=== PATIENT | male | born 1945 | race Caucasian/White ===

== ENCOUNTER → 2017-06-23 | Outpatient (CLI) | payer MEDICARE, OTHER ==
[~2017-06-23] MED LIST: GABA600T2 PO; LISI-170 PO; METO25TA91 PO; OMEP-110 PO; OMNIPAQUE 350 MG/ML, 100ML BOTTLE ONE; OXYB5TAB7 PO; TRAM50TA2 PO
== END | disposition home or self-care (01) ==
LOC: CFH 14:48
PROVIDERS: ATTEND Thoracic Surgery (Cardiothoracic Vascular Surgery)
DX: Z01.810 Encounter for preprocedural cardiovascular examination (principal); I34.2 Nonrheumatic mitral (valve) stenosis; I71.9 Aortic aneurysm of unspecified site, without rupture; Z95.2 Presence of prosthetic heart valve
CPT/HCPCS: 71275; Q9967

== ENCOUNTER 2017-10-26 04:27 | Inpatient (IN) | payer OTHER ==
[2017-10-25 14:01] LABS: BASOPHILS # (AUTO) 0.06 x10^3/uL (0-0.1); BASOPHILS % (AUTO) 1 % (0-1); EOSINOPHILS # (AUTO) 0.31 x10^3/uL (0-0.4); EOSINOPHILS % (AUTO) 4 % (1-7); LYMPHOCYTES # (AUTO) 0.64 x10^3/uL (1-3.4); LYMPHOCYTES % (AUTO) 8 % (22-44); MD NO; MEAN CORPUSCULAR HGB CONC 32.5 g/dL (33.2-36.2); MEAN PLATELET VOLUME 10.6 fL (7.4-10.4); MONOCYTES # (AUTO) 0.72 x10^3/uL (0.2-0.8); MONOCYTES % (AUTO) 9 % (2-9); NEUTROPHILS # (AUTO) 6.05 x10^3/uL (1.8-6.8); NEUTROPHILS % (AUTO) 78 % (42-75); PLATELET COUNT 179 x10^3/uL (130-400); RED BLOOD COUNT 5.02 x10^6/uL (4.38-5.82); RED CELL DISTRIBUTION WIDTH 16.6 % (9.4-14.8)
[2017-10-25 14:09] LABS: INTERNATIONAL NORMALIZED RATIO 1.07 (0.93-1.1); PROTHROMBIN TIME 11.1 Seconds (9.6-11.5)
[2017-10-25 14:13] LABS: ALANINE AMINOTRANSFERASE 23 U/L (12-78); ALBUMIN 3.5 g/dL (3.4-5.0); ANION GAP 6 mmol/L (5-15); CALCIUM 8.1 mg/dL (8.5-10.1); CHLORIDE 106 mmol/L (98-107); CREATININE 0.99 mg/dL (0.7-1.3)
[2017-10-25 14:16] LABS: ALKALINE PHOSPHATASE 105 U/L (45-117); BILIRUBIN,TOTAL 0.6 mg/dL (0.2-1.0); TOTAL PROTEIN 7.6 g/dL (6.4-8.2)
[2017-10-25 14:17] LABS: HEMOGLOBIN A1C 6.6 % (4.2-6.3)
[~2017-10-26] VITALS: Ht 180.3 cm; Wt 138.9 kg
[~2017-10-26 04:27] MED LIST changes: -OMNIPAQUE 350 MG/ML, 100ML BOTTLE ONE
[2017-10-26 04:40] VITALS: BP_SYST 117; BP_SYST 125; BP_DIAS 74; BP_DIAS 79
[2017-10-26] MEDS ORDERED: CHLORHEXIDINE 15 ML BOTTLE MM SCH (05:30)
[2017-10-26] MEDS ORDERED: INSULIN ASPART 100 UNITS/ML, PEN SQ-INSULIN SCH (06:00)
[2017-10-26] MEDS ORDERED: VANCOMYCIN 2,100 MG in SODIUM CHLORIDE 0.9% 500 ML IV PRN (07:30)
[2017-10-26] MEDS ORDERED: EPINEPHRINE 2 MG in SODIUM CHLORIDE 0.9% 248 ML IV SCH (07:30)
[2017-10-26] MEDS ORDERED: MANNITOL PMX 20% 500 ML IVPB PRN (07:30)
[2017-10-26] MEDS ORDERED: PHENYLEPHRINE 10 MG in SODIUM CHLORIDE 0.9% 249 ML IV PRN ×2 (07:30→12:52)
[2017-10-26] MEDS ORDERED: DEXMEDETOMIDINE 200 MCG in SODIUM CHLORIDE 0.9% 48 ML IV SCH (07:30)
[2017-10-26] MEDS ORDERED: REGULAR INSULIN 62.5 UNITS in SODIUM CHLORIDE 0.9% 249.375 ML IV PRN (07:30)
[2017-10-26] MEDS ORDERED: CEFUROXIME 1.5 GM in SODIUM CHLORIDE 0.9% 50 ML IVPB PRN (07:30)
[2017-10-26] MEDS ORDERED: POTASSIUM CHLORIDE 80 MEQ, SODIUM BICARBONATE 8.4% 10 MEQ, MAGNESIUM SULFATE 0.5 GM, LI... IV PRN (07:30)
[2017-10-26] MEDS ORDERED: ALBUMIN HUMAN 5% 500 ML IV PRN (07:30)
[2017-10-26] MEDS ORDERED: FENTANYL PF 1000 MCG/20ML ONE (07:52)
[2017-10-26] MEDS ORDERED: MIDAZOLAM 10MG/2 ML ONE (07:53)
[2017-10-26] MEDS ORDERED: EPINEPHRINE 1 MG/ML, 1ML ONE (08:34)
[2017-10-26] MEDS ORDERED: KETAMINE 10 MG/ML, 20ML ONE (08:34)
[2017-10-26] MEDS ORDERED: VASOPRESSIN 20 UNIT/ML, 1ML ONE (08:34)
[2017-10-26] MEDS ORDERED: MUPIROCIN OINT 2%, 22GM TP SCH (09:00)
[2017-10-26] MEDS: DOCUSATE 100 MG CAPSULE PO SCH ×2 (09:00→20:01)
[2017-10-26] MEDS ORDERED: SODIUM CHLORIDE FLUSH 10ML SYR IVF SCH (09:00)
[2017-10-26] MEDS ORDERED: METHYLENE BLUE 10 MG/ML 10ML ONE (09:24)
[2017-10-26] MEDS ORDERED: ROCURONIUM 10 MG/ML,10ML ONE ×3 (10:19)
[2017-10-26] MEDS ORDERED: PROTAMINE SULFATE 10 MG/ML, 25ML ONE (10:21)
[2017-10-26] MEDS ORDERED: CALCIUM CHLORIDE 10%, 10ML SYR ONE (10:21)
[2017-10-26] MEDS ORDERED: PROPOFOL 10 MG/ML, 20ML ONE (10:21)
[2017-10-26] MEDS ORDERED: DEXMEDETOMIDINE 200 MCG in SODIUM CHLORIDE 0.9% 48 ML IV PRN (12:52)
[2017-10-26] MEDS ORDERED: DOBUTAMINE 250 MG in SODIUM CHLORIDE 0.9% 230 ML IV PRN (12:52)
[2017-10-26] MEDS ORDERED: NITROGLYCERIN/D5W PMX 240 ML IV PRN (12:52)
[2017-10-26] MEDS ORDERED: VASOPRESSIN 50 UNIT in SODIUM CHLORIDE 0.9% 250 ML IV PRN (12:52)
[2017-10-26] MEDS ORDERED: INSULIN REGULAR 100 UNITS/ML, 3ML VIAL IVPush PRN (13:00)
[2017-10-26] MEDS ORDERED: PROCHLORPERAZINE 5 MG/ML, 2ML IVPush PRN (13:00)
[2017-10-26] MEDS ORDERED: morphine SULFATE 10 MG/ML, 1ML IVPush PRN (13:00)
[2017-10-26] MEDS ORDERED: DEXTROSE 4 GM TAB.CHEW PO PRN (13:00)
[2017-10-26] MEDS ORDERED: BISACODYL 10 MG SUPP PR PRN (13:00)
[2017-10-26] MEDS ORDERED: LACTATED RINGERS 1,000 ML IV PRN (13:00)
[2017-10-26] MEDS ORDERED: ONDANSETRON 2MG/ML, 2ML IVPush PRN (13:00)
[2017-10-26] MEDS: CHLORHEXIDINE 15 ML BOTTLE MM SCH (13:00)
[2017-10-26] MEDS ORDERED: BISACODYL 5 MG EC TABLET PO PRN (13:00)
[2017-10-26] MEDS ORDERED: ACETAMINOPHEN 650 MG SUPP PR PRN (13:00)
[2017-10-26] MEDS ORDERED: DEXTROSE 50%, 50ML SYRINGE IVPush PRN (13:00)
[2017-10-26] MEDS ORDERED: GLUCAGON 1 MG IM PRN (13:00)
[2017-10-26] MEDS ORDERED: SODIUM BICARB 8.4%, 50ML SYRINGE ONE (13:13)
[2017-10-26] MEDS ORDERED: ALBUMIN HUMAN 25% 50 ML ONE (13:14)
[2017-10-26] MEDS ORDERED: HEPARIN 1,000 UNITS/ML, 30ML ONE (13:14)
[2017-10-26] MEDS ORDERED: LIDOCAINE 2% 100MG/5ML SYRINGE ONE (13:14)
[2017-10-26] MEDS ORDERED: methylPREDNISolone SOD SUCC 125 MG/2 ML ONE (13:14)
[2017-10-26 13:32] LABS: GLUCOSE BY BLOOD GAS ANALYZER 207 mg/dL (70-110); HEMOGLOBIN BY BLOOD GAS ANALYZ 9.8 g/dL (14.0-18.0); POTASSIUM BY BLOOD GAS ANALYZR 3.3 mmol/L (3.6-5.5)
[2017-10-26] MEDS ORDERED: FENTANYL PF 250 MCG/5ML ONE (13:32)
[2017-10-26 13:33] LABS: FIO2 80 %
[2017-10-26 13:43] LABS: INTERNATIONAL NORMALIZED RATIO 1.38 (0.93-1.1); PROTHROMBIN TIME 14.3 Seconds (9.6-11.5)
[2017-10-26] MEDS ORDERED: POTASSIUM CHLORIDE 30 MEQ in SODIUM CHLORIDE 0.9% 100 ML IV ONE (15:00)
[2017-10-26] MEDS ORDERED: DEXMEDETOMIDINE 1,000 MCG in SODIUM CHLORIDE 0.9% 240 ML IV PRN (15:00)
[2017-10-26] MEDS: KSCALE TO 4.5 IV SCH ×2 (15:13→19:00)
[2017-10-26] MEDS: SODIUM CHLORIDE 0.9% 1,000 ML IV SCH (15:15)
[2017-10-26] MEDS: EPINEPHRINE 2 MG in SODIUM CHLORIDE 0.9% 248 ML IV PRN ×2 (15:35→20:40)
[2017-10-26] MEDS: INSULIN ASPART 100 UNITS/ML, PEN SQ-INSULIN SCH ×2 (16:00→20:01)
[2017-10-26] MEDS: MAGNESIUM SULFATE 1 GM in SODIUM CHLORIDE 0.9% 50 ML IVPB SCH (16:12)
[2017-10-26] MEDS: SODIUM BICARB 8.4%, 50ML SYRINGE IV PRN ×2 (17:31→20:22)
[2017-10-26 18:57] LABS: CULTURE INDICATED? YES; MICROSCOPIC INDICATED
[2017-10-26] MEDS: REGULAR INSULIN 62.5 UNITS in SODIUM CHLORIDE 0.9% 249.375 ML IV PRN (19:56)
[2017-10-26] MEDS: CEFUROXIME 1.5 GM in SODIUM CHLORIDE 0.9% 50 ML IVPB SCH (19:59)
[2017-10-26] MEDS: VANCOMYCIN 2,100 MG in SODIUM CHLORIDE 0.9% 500 ML IVPB SCH (19:59)
[2017-10-26] MEDS: SODIUM CHLORIDE FLUSH 10ML SYR IVF SCH (19:59)
[2017-10-26] MEDS: MUPIROCIN OINT 2%, 22GM NAS SCH (20:00)
[2017-10-26] MEDS ORDERED: MIDAZOLAM 1 MG/ML, 2ML ONE (20:14)
[2017-10-26] MEDS ORDERED: SODIUM BICARBONATE 1 MEQ/ML, 50ML VIAL ONE (20:15)
[2017-10-26] MEDS: MIDAZOLAM 1 MG/ML, 5ML IVPush PRN ×2 (20:22→22:17)
[2017-10-26] MEDS ORDERED: SODIUM BICARB 8.4%, 50ML SYRINGE IV PRN (21:30)
[2017-10-26] MEDS ORDERED: POTASSIUM CHLORIDE 40 MEQ in SODIUM CHLORIDE 0.9% 100 ML IV ONE (22:00)
[2017-10-26] MEDS: OXYcodone IR 5MG TABLET PO PRN (22:17)
[2017-10-27] MEDS: CHLORHEXIDINE 15 ML BOTTLE MM SCH ×2 (00:41→13:00)
[2017-10-27] MEDS: KSCALE TO 4.5 IV SCH ×2 (03:00→08:37)
[2017-10-27] MEDS: REGULAR INSULIN 62.5 UNITS in SODIUM CHLORIDE 0.9% 249.375 ML IV PRN (03:19)
[2017-10-27] MEDS: EPINEPHRINE 2 MG in SODIUM CHLORIDE 0.9% 248 ML IV PRN (03:19)
[2017-10-27] MEDS ORDERED: ALBUTEROL/IPRATROPIUM 2.5MG/0.5MG, 3 ML NPPB PRN (04:00)
[2017-10-27 05:10] LABS: INTERNATIONAL NORMALIZED RATIO 1.15 (0.93-1.1); PROTHROMBIN TIME 11.9 Seconds (9.6-11.5)
[2017-10-27 05:12] LABS: MEAN CORPUSCULAR HEMOGLOBIN 26.3 pg (27.5-34.5); MEAN CORPUSCULAR HGB CONC 32.4 g/dL (33.2-36.2); MEAN CORPUSCULAR VOLUME 81.3 fL (81-97); MEAN PLATELET VOLUME 11.1 fL (7.4-10.4); PLATELET COUNT 124 x10^3/uL (130-400); RED BLOOD COUNT 4.17 x10^6/uL (4.38-5.82); RED CELL DISTRIBUTION WIDTH 16.5 % (9.4-14.8)
[2017-10-27 05:15] LABS: CHLORIDE 113 mmol/L (98-107)
[2017-10-27 05:21] LABS: ALBUMIN 2.7 g/dL (3.4-5.0); ANION GAP 8 mmol/L (5-15); CALCIUM 7.6 mg/dL (8.5-10.1); CREATININE 0.73 mg/dL (0.7-1.3)
[2017-10-27 05:30] LABS: MD YES
[2017-10-27] MEDS: INSULIN ASPART 100 UNITS/ML, PEN SQ-INSULIN SCH ×4 (05:31→19:54)
[2017-10-27 05:32] LABS: BANDS%(MANUAL) 12 % (0-7); MONOS#(MANUAL) 1.38 x10^3/uL (0.3-2.7); MONOS% (MANUAL) 5 % (2-9); SEG#(MANUAL) 22.83 x10^3/uL (1.8-6.8); SEGS% (MANUAL) 83 % (42-75)
[2017-10-27 05:34] LABS: <PLATELET ESTIMATE> ADEQUATE; LARGE PLATELETS 1+; OVALOCYTES 1+
[2017-10-27] MEDS: CEFUROXIME 1.5 GM in SODIUM CHLORIDE 0.9% 50 ML IVPB SCH (08:25)
[2017-10-27] MEDS: VANCOMYCIN 2,100 MG in SODIUM CHLORIDE 0.9% 500 ML IVPB SCH (08:25)
[2017-10-27] MEDS: OXYBUTYNIN CHLORIDE 5 MG TABLET PO SCH ×2 (08:34→19:48)
[2017-10-27] MEDS: POTASSIUM CHLORIDE 10 MEQ TABLET.ER PO SCH ×2 (08:34→18:01)
[2017-10-27] MEDS: DOCUSATE 100 MG CAPSULE PO SCH ×2 (08:34→19:48)
[2017-10-27] MEDS: ASPIRIN 81 MG TABLET EC PO SCH (08:34)
[2017-10-27] MEDS: FUROSEMIDE 20 MG TABLET PO SCH ×2 (08:34→18:01)
[2017-10-27] MEDS: OXYcodone IR 5MG TABLET PO PRN ×4 (08:34→22:06)
[2017-10-27] MEDS: MUPIROCIN OINT 2%, 22GM NAS SCH ×2 (08:35→19:48)
[2017-10-27] MEDS: SODIUM CHLORIDE FLUSH 10ML SYR IVF SCH ×2 (08:36→19:48)
[2017-10-27] MEDS: WARFARIN BIOPROSTHETIC VALVE PROTOCOL 2-3 XX SCH (09:00)
[2017-10-27] MEDS: SODIUM CHLORIDE 0.9% 1,000 ML IV SCH (11:00)
[2017-10-27] MEDS ORDERED: LIDOCAINE 1%, 20ML ONE ×2 (11:04→11:11)
[2017-10-27] MEDS: MAGNESIUM SULFATE 1 GM in SODIUM CHLORIDE 0.9% 50 ML IVPB SCH (16:20)
[2017-10-27] MEDS ORDERED: WARFARIN 5 MG TABLET PO-COUM ONE (18:00)
[2017-10-27] MEDS: GABAPENTIN 300 MG CAPSULE PO SCH (21:59)
[2017-10-28] MEDS: CHLORHEXIDINE 15 ML BOTTLE MM SCH ×2 (00:26→15:53)
[2017-10-28] MEDS: OXYcodone IR 5MG TABLET PO PRN ×2 (01:33→06:40)
[2017-10-28 05:06] LABS: MEAN CORPUSCULAR HEMOGLOBIN 26.1 pg (27.5-34.5); MEAN CORPUSCULAR HGB CONC 32.7 g/dL (33.2-36.2); MEAN CORPUSCULAR VOLUME 79.9 fL (81-97); MEAN PLATELET VOLUME 10.9 fL (7.4-10.4); PLATELET COUNT 119 x10^3/uL (130-400); RED BLOOD COUNT 4.17 x10^6/uL (4.38-5.82); RED CELL DISTRIBUTION WIDTH 16.3 % (9.4-14.8)
[2017-10-28 05:07] LABS: INTERNATIONAL NORMALIZED RATIO 1.14 (0.93-1.1); PROTHROMBIN TIME 11.8 Seconds (9.6-11.5)
[2017-10-28 05:10] LABS: ANION GAP 8 mmol/L (5-15); CALCIUM 7.6 mg/dL (8.5-10.1); CHLORIDE 102 mmol/L (98-107); CREATININE 0.73 mg/dL (0.7-1.3)
[2017-10-28 05:41] LABS: MD YES
[2017-10-28 05:43] LABS: BANDS%(MANUAL) 4 % (0-7); LYMPH#(MANUAL) 0.25 x10^3/uL (1-3.4); LYMPHS% (MANUAL) 1 % (22-44); MONOS#(MANUAL) 0.75 x10^3/uL (0.3-2.7); MONOS% (MANUAL) 3 % (2-9); SEG#(MANUAL) 22.91 x10^3/uL (1.8-6.8); SEGS% (MANUAL) 92 % (42-75)
[2017-10-28 05:44] LABS: <PLATELET ESTIMATE> DECREASED; LARGE PLATELETS 1+; OVALOCYTES 1+
[2017-10-28] MEDS: SODIUM CHLORIDE 0.9% 1,000 ML IV SCH (07:00)
[2017-10-28] MEDS: INSULIN ASPART 100 UNITS/ML, PEN SQ-INSULIN SCH ×4 (07:00→20:47)
[2017-10-28] MEDS: DOCUSATE 100 MG CAPSULE PO SCH ×2 (08:29→20:45)
[2017-10-28] MEDS: MUPIROCIN OINT 2%, 22GM NAS SCH ×2 (08:29→20:45)
[2017-10-28] MEDS: ASPIRIN 81 MG TABLET EC PO SCH (08:29)
[2017-10-28] MEDS: FUROSEMIDE 20 MG TABLET PO SCH ×2 (08:29→17:00)
[2017-10-28] MEDS: POTASSIUM CHLORIDE 10 MEQ TABLET.ER PO SCH ×2 (08:29→17:00)
[2017-10-28] MEDS: OXYBUTYNIN CHLORIDE 5 MG TABLET PO SCH ×2 (08:29→20:46)
[2017-10-28] MEDS ORDERED: KETOROLAC 30 MG/1 ML IVPush PRN (08:30)
[2017-10-28] MEDS: SODIUM CHLORIDE FLUSH 10ML SYR IVF SCH ×2 (08:30→20:45)
[2017-10-28] MEDS ORDERED: HYDROcodone/APAP 5/325 TABLET PO PRN (08:30)
[2017-10-28] MEDS: WARFARIN BIOPROSTHETIC VALVE PROTOCOL 2-3 XX SCH (09:00)
[2017-10-28] MEDS: ACETAMINOPHEN 325 MG TABLET PO PRN ×2 (12:28→17:35)
[2017-10-28] MEDS ORDERED: POTASSIUM CHLORIDE PMX 100 ML IV ONE (15:30)
[2017-10-28] MEDS ORDERED: POTASSIUM CHLORIDE 20 MEQ in SODIUM CHLORIDE 0.9% 100 ML IV ONE (15:30)
[2017-10-28] MEDS: MAGNESIUM SULFATE 1 GM in SODIUM CHLORIDE 0.9% 50 ML IVPB SCH (15:54)
[2017-10-28] MEDS ORDERED: WARFARIN 5 MG TABLET PO-COUM ONE (18:00)
[2017-10-28] MEDS: GABAPENTIN 300 MG CAPSULE PO SCH (20:46)
[2017-10-29] MEDS: CHLORHEXIDINE 15 ML BOTTLE MM SCH ×2 (01:00→15:26)
[2017-10-29 04:33] LABS: BASOPHILS # (AUTO) 0.03 x10^3/uL (0-0.1); BASOPHILS % (AUTO) 0 % (0-1); EOSINOPHILS # (AUTO) 0.03 x10^3/uL (0-0.4); EOSINOPHILS % (AUTO) 0 % (1-7); LYMPHOCYTES # (AUTO) 0.76 x10^3/uL (1-3.4); LYMPHOCYTES % (AUTO) 5 % (22-44); MD NO; MEAN CORPUSCULAR HEMOGLOBIN 25.9 pg (27.5-34.5); MEAN CORPUSCULAR HGB CONC 32.3 g/dL (33.2-36.2); MEAN CORPUSCULAR VOLUME 80.2 fL (81-97); MEAN PLATELET VOLUME 10.9 fL (7.4-10.4); MONOCYTES # (AUTO) 1.08 x10^3/uL (0.2-0.8); MONOCYTES % (AUTO) 7 % (2-9); NEUTROPHILS # (AUTO) 14.54 x10^3/uL (1.8-6.8); NEUTROPHILS % (AUTO) 88 % (42-75); PLATELET COUNT 117 x10^3/uL (130-400); RED BLOOD COUNT 3.97 x10^6/uL (4.38-5.82); RED CELL DISTRIBUTION WIDTH 16.5 % (9.4-14.8)
[2017-10-29 04:44] LABS: ANION GAP 7 mmol/L (5-15); CALCIUM 7.3 mg/dL (8.5-10.1); CHLORIDE 101 mmol/L (98-107)
[2017-10-29 04:45] LABS: CREATININE 0.59 mg/dL (0.7-1.3)
[2017-10-29] MEDS: INSULIN ASPART 100 UNITS/ML, PEN SQ-INSULIN SCH ×4 (07:49→21:00)
[2017-10-29] MEDS: FUROSEMIDE 20 MG TABLET PO SCH ×2 (08:18→17:01)
[2017-10-29] MEDS: POTASSIUM CHLORIDE 10 MEQ TABLET.ER PO SCH ×2 (08:18→17:01)
[2017-10-29] MEDS ORDERED: SODIUM CHLORIDE 0.9% 1,000 ML IV SCH (09:00)
[2017-10-29] MEDS: MUPIROCIN OINT 2%, 22GM NAS SCH ×2 (09:00→21:00)
[2017-10-29] MEDS: SODIUM CHLORIDE FLUSH 10ML SYR IVF SCH ×2 (09:16→21:54)
[2017-10-29] MEDS: LISINOPRIL 10 MG TABLET PO SCH ×2 (09:18→21:55)
[2017-10-29] MEDS: DOCUSATE 100 MG CAPSULE PO SCH ×2 (09:18→21:55)
[2017-10-29] MEDS: OXYBUTYNIN CHLORIDE 5 MG TABLET PO SCH ×2 (09:18→21:55)
[2017-10-29] MEDS: ASPIRIN 81 MG TABLET EC PO SCH (09:18)
[2017-10-29] MEDS: HYDROcodone/APAP 10/325 MG TABLET PO PRN ×2 (12:31→17:01)
[2017-10-29 17:20] LABS: INTERNATIONAL NORMALIZED RATIO 1.49 (0.93-1.1); PROTHROMBIN TIME 15.4 Seconds (9.6-11.5)
[2017-10-29] MEDS: GABAPENTIN 300 MG CAPSULE PO SCH (21:55)
[2017-10-30] MEDS: CHLORHEXIDINE 15 ML BOTTLE MM SCH (01:21)
[2017-10-30] MEDS: HYDROcodone/APAP 10/325 MG TABLET PO PRN ×4 (01:21→21:07)
[2017-10-30 06:06] LABS: BASOPHILS # (AUTO) 0.02 x10^3/uL (0-0.1); BASOPHILS % (AUTO) 0 % (0-1); EOSINOPHILS # (AUTO) 0.14 x10^3/uL (0-0.4); EOSINOPHILS % (AUTO) 1 % (1-7); LYMPHOCYTES % (AUTO) 6 % (22-44); MD NO; MEAN CORPUSCULAR HEMOGLOBIN 26.1 pg (27.5-34.5); MEAN CORPUSCULAR HGB CONC 32.8 g/dL (33.2-36.2); MEAN CORPUSCULAR VOLUME 79.5 fL (81-97); MEAN PLATELET VOLUME 10.6 fL (7.4-10.4); MONOCYTES # (AUTO) 1.11 x10^3/uL (0.2-0.8); MONOCYTES % (AUTO) 9 % (2-9); NEUTROPHILS # (AUTO) 10.66 x10^3/uL (1.8-6.8); NEUTROPHILS % (AUTO) 84 % (42-75); PLATELET COUNT 132 x10^3/uL (130-400); RED BLOOD COUNT 4.44 x10^6/uL (4.38-5.82); RED CELL DISTRIBUTION WIDTH 16.6 % (9.4-14.8)
[2017-10-30 06:15] LABS: ANION GAP 8 mmol/L (5-15); CALCIUM 7.6 mg/dL (8.5-10.1); CHLORIDE 99 mmol/L (98-107); CREATININE 0.52 mg/dL (0.7-1.3)
[2017-10-30] MEDS: INSULIN ASPART 100 UNITS/ML, PEN SQ-INSULIN SCH ×2 (07:00→11:00)
[2017-10-30] MEDS ORDERED: POTASSIUM CHLORIDE 20 MEQ TAB.ER.PRT PO ONE (07:30)
[2017-10-30] MEDS: FUROSEMIDE 20 MG TABLET PO SCH ×2 (08:03→15:59)
[2017-10-30] MEDS: ASPIRIN 81 MG TABLET EC PO SCH (08:03)
[2017-10-30] MEDS: LISINOPRIL 10 MG TABLET PO SCH ×2 (08:03→21:05)
[2017-10-30] MEDS: POTASSIUM CHLORIDE 10 MEQ TABLET.ER PO SCH ×2 (08:03→15:59)
[2017-10-30] MEDS: OXYBUTYNIN CHLORIDE 5 MG TABLET PO SCH ×2 (08:03→21:05)
[2017-10-30] MEDS: DOCUSATE 100 MG CAPSULE PO SCH ×2 (08:03→21:05)
[2017-10-30] MEDS: CALCIUM CARBONATE 500 MG TAB.CHEW PO PRN ×3 (08:04→18:35)
[2017-10-30] MEDS: MUPIROCIN OINT 2%, 22GM NAS SCH ×2 (08:04→22:01)
[2017-10-30] MEDS: SODIUM CHLORIDE FLUSH 10ML SYR IVF SCH ×2 (08:04→21:04)
[2017-10-30] MEDS: INSULIN LISPRO 100 UNITS/ML, PEN SQ-INSULIN SCH ×2 (15:59→21:00)
[2017-10-30] MEDS: GABAPENTIN 300 MG CAPSULE PO SCH (21:05)
[2017-10-30] MEDS ORDERED: INSULIN ASPART 100 UNITS/ML, PEN SQ-INSULIN SCH (22:17)
[2017-10-31] MEDS: CALCIUM CARBONATE 500 MG TAB.CHEW PO PRN ×4 (00:06→22:28)
[2017-10-31 04:30] VITALS: BP 135/55
[2017-10-31 04:51] LABS: MEAN CORPUSCULAR HGB CONC 32.4 g/dL (33.2-36.2); MEAN CORPUSCULAR VOLUME 80.3 fL (81-97); MEAN PLATELET VOLUME 10.9 fL (7.4-10.4); PLATELET COUNT 194 x10^3/uL (130-400); RED BLOOD COUNT 4.64 x10^6/uL (4.38-5.82); RED CELL DISTRIBUTION WIDTH 16.2 % (9.4-14.8)
[2017-10-31 04:54] LABS: ANION GAP 4 mmol/L (5-15); CHLORIDE 98 mmol/L (98-107)
[2017-10-31 05:54] LABS: BASOPHILS % (AUTO) 1 % (0-1); EOSINOPHILS # (AUTO) 0.26 x10^3/uL (0-0.4); EOSINOPHILS % (AUTO) 2 % (1-7); LYMPHOCYTES # (AUTO) 1.04 x10^3/uL (1-3.4); LYMPHOCYTES % (AUTO) 9 % (22-44); MD SCAN; MONOCYTES # (AUTO) 1.29 x10^3/uL (0.2-0.8); MONOCYTES % (AUTO) 12 % (2-9); NEUTROPHILS # (AUTO) 8.39 x10^3/uL (1.8-6.8); NEUTROPHILS % (AUTO) 76 % (42-75)
[2017-10-31] MEDS: ASPIRIN 81 MG TABLET EC PO SCH (07:39)
[2017-10-31] MEDS: DOCUSATE 100 MG CAPSULE PO SCH ×2 (07:40→21:00)
[2017-10-31] MEDS: POTASSIUM CHLORIDE 10 MEQ TABLET.ER PO SCH ×2 (07:40→16:03)
[2017-10-31] MEDS: LISINOPRIL 10 MG TABLET PO SCH ×2 (07:40→22:11)
[2017-10-31] MEDS: OXYBUTYNIN CHLORIDE 5 MG TABLET PO SCH ×2 (07:40→22:10)
[2017-10-31] MEDS: FUROSEMIDE 20 MG TABLET PO SCH ×2 (07:40→16:03)
[2017-10-31] MEDS: MUPIROCIN OINT 2%, 22GM NAS SCH (07:41)
[2017-10-31] MEDS: SODIUM CHLORIDE FLUSH 10ML SYR IVF SCH ×3 (07:41→22:10)
[2017-10-31] MEDS: SODIUM CHLORIDE 0.9% 1,000 ML IV SCH ×3 (07:55→23:36)
[2017-10-31] MEDS ORDERED: CEFAZOLIN PMX 2GM/50ML 50 ML IVPB ONE (08:00)
[2017-10-31] MEDS ORDERED: FENTANYL PF 100 MCG/2ML ONE (11:20)
[2017-10-31] MEDS ORDERED: MIDAZOLAM 1 MG/ML, 2ML ONE (11:20)
[2017-10-31] MEDS ORDERED: CEFAZOLIN 1,000 MG ONE (11:21)
[2017-10-31] MEDS ORDERED: CEFAZOLIN PMX 1GM/50ML 50 ML ONE (11:21)
[2017-10-31] MEDS ORDERED: LIDOCAINE 2%, 20ML ONE (11:21)
[2017-10-31 12:50] VITALS: BP 142/88
[2017-10-31 13:30] VITALS: BP 144/89
[2017-10-31 15:30] VITALS: BP 151/92
[2017-10-31] MEDS: HYDROcodone/APAP 10/325 MG TABLET PO PRN ×2 (16:05→22:28)
[2017-10-31] MEDS: CEFAZOLIN PMX 1GM/50ML 50 ML IVPB SCH (17:41)
[2017-10-31 18:30] VITALS: BP 122/79
[2017-10-31] MEDS: GABAPENTIN 300 MG CAPSULE PO SCH (22:11)
[2017-11-01 01:20] VITALS: BP 143/89
[2017-11-01] MEDS: CEFAZOLIN PMX 1GM/50ML 50 ML IVPB SCH ×2 (02:22→10:35)
[2017-11-01 05:42] LABS: BASOPHILS # (AUTO) 0.07 x10^3/uL (0-0.1); BASOPHILS % (AUTO) 1 % (0-1); EOSINOPHILS # (AUTO) 0.41 x10^3/uL (0-0.4); EOSINOPHILS % (AUTO) 4 % (1-7); LYMPHOCYTES % (AUTO) 7 % (22-44); MD NO; MEAN CORPUSCULAR HEMOGLOBIN 26.2 pg (27.5-34.5); MEAN CORPUSCULAR HGB CONC 32.6 g/dL (33.2-36.2); MEAN CORPUSCULAR VOLUME 80.3 fL (81-97); MEAN PLATELET VOLUME 10.6 fL (7.4-10.4); MONOCYTES # (AUTO) 1.07 x10^3/uL (0.2-0.8); MONOCYTES % (AUTO) 10 % (2-9); NEUTROPHILS % (AUTO) 78 % (42-75); PLATELET COUNT 195 x10^3/uL (130-400); RED BLOOD COUNT 4.45 x10^6/uL (4.38-5.82); RED CELL DISTRIBUTION WIDTH 16.6 % (9.4-14.8)
[2017-11-01 05:55] LABS: CHLORIDE 98 mmol/L (98-107)
[2017-11-01 06:10] LABS: ANION GAP 12 mmol/L (5-15); CALCIUM 8.3 mg/dL (8.5-10.1); CREATININE 0.69 mg/dL (0.7-1.3)
[2017-11-01 06:38] VITALS: BP 142/85
[2017-11-01] MEDS: HYDROcodone/APAP 10/325 MG TABLET PO PRN (08:01)
[2017-11-01] MEDS: ASPIRIN 81 MG TABLET EC PO SCH (08:01)
[2017-11-01] MEDS: LISINOPRIL 10 MG TABLET PO SCH (08:01)
[2017-11-01] MEDS: FUROSEMIDE 20 MG TABLET PO SCH (08:01)
[2017-11-01] MEDS: OXYBUTYNIN CHLORIDE 5 MG TABLET PO SCH (08:01)
[2017-11-01] MEDS: POTASSIUM CHLORIDE 10 MEQ TABLET.ER PO SCH (08:01)
[2017-11-01 09:05] LABS: INTERNATIONAL NORMALIZED RATIO 1.24 (0.93-1.1); PROTHROMBIN TIME 12.8 Seconds (9.6-11.5)
[2017-11-01] MEDS: SODIUM CHLORIDE FLUSH 10ML SYR IVF SCH ×2 (09:10)
[2017-11-01] MEDS: DOCUSATE 100 MG CAPSULE PO SCH (09:10)
[2017-11-01] MEDS ORDERED: WARFARIN 5 MG TABLET PO-COUM ONE (11:00)
[2017-11-01] MEDS ORDERED: HYDR-3240 PO (12:33)
[2017-11-01] MEDS ORDERED: LISI-167 PO (12:35)
[2017-11-01] MEDS ORDERED: FURO-93 PO (12:37)
[2017-11-01] MEDS ORDERED: POTA10CA PO (12:38)
[2017-11-01] MEDS ORDERED: ASPI-621 PO (12:38)
[2017-11-01] MEDS ORDERED: DOCU-131 PO (12:39)
[2017-11-01] MEDS ORDERED: WARF5TAB PO (12:39)
== END 2017-11-01 13:00 | disposition home or self-care (01) | DRG 219 ==
LOC: 5SO 04:27 → CSU 09:43 → 5SO 10-31 11:23 → DCLOUNGE 11-01 12:40
PROVIDERS: ADMIT Thoracic Surgery (Cardiothoracic Vascular Surgery); ATTEND Thoracic Surgery (Cardiothoracic Vascular Surgery)
PROC: 5A1221Z Performance of Cardiac Output, Continuous (ICD-10-PCS; 2017-10-26)
PROC: 02B70ZK Excision of Left Atrial Appendage, Open Approach (ICD-10-PCS; 2017-10-26)
PROC: B24BZZ4 Ultrasonography of Heart with Aorta, Transesophageal (ICD-10-PCS; 2017-10-26)
PROC: 5A1223Z Performance of Cardiac Pacing, Continuous (ICD-10-PCS; 2017-10-26)
PROC: 02RG08Z Replacement of Mitral Valve with Zooplastic Tissue, Open Approach (ICD-10-PCS; principal; 2017-10-26 08:30)
PROC: 0W9B3ZZ Drainage of Left Pleural Cavity, Percutaneous Approach (ICD-10-PCS; 2017-10-27)
PROC: 0JH606Z Insertion of Pacemaker, Dual Chamber into Chest Subcutaneous Tissue and Fascia, Open Approach (ICD-10-PCS; 2017-10-31)
PROC: 02H63JZ Insertion of Pacemaker Lead into Right Atrium, Percutaneous Approach (ICD-10-PCS; 2017-10-31)
PROC: 02HK3JZ Insertion of Pacemaker Lead into Right Ventricle, Percutaneous Approach (ICD-10-PCS; 2017-10-31)
DX: I05.0 Rheumatic mitral stenosis (principal); I50.23 Acute on chronic systolic (congestive) heart failure; I44.2 Atrioventricular block, complete; E87.4 Mixed disorder of acid-base balance; I45.89 Other specified conduction disorders; I48.4 Atypical atrial flutter; I48.92 Unspecified atrial flutter; I11.0 Hypertensive heart disease with heart failure; E11.9 Type 2 diabetes mellitus without complications; E66.9 Obesity, unspecified; E78.5 Hyperlipidemia, unspecified; G47.33 Obstructive sleep apnea (adult) (pediatric); I48.91 Unspecified atrial fibrillation; Z51.5 Encounter for palliative care; Z96.653 Presence of artificial knee joint, bilateral; E66.01 Morbid (severe) obesity due to excess calories; R91.8 Other nonspecific abnormal finding of lung field; G89.29 Other chronic pain; M19.90 Unspecified osteoarthritis, unspecified site; M54.9 Dorsalgia, unspecified; Z79.01 Long term (current) use of anticoagulants; Z98.84 Bariatric surgery status; Z87.891 Personal history of nicotine dependence; Z79.899 Other long term (current) drug therapy
CPT/HCPCS: 32555; 33208; 36415; 36600; 71045; 71046; 80048; 80053; 81001; 82040; 82330; 82800; 82803; 82810; 82947; 82962; 83036; 83735; 84132; 84295; 85014; 85018; 85025; 85049; 85347; 85610; 85730; 86850; 86900; 86923; 87081; 87086; 88305; 93005; 93312; 93321; 93325; 93880; 94002; 94003; 94150; 99156; 99157; C1779; C1785; C1892; J0171; J0690; J0697; J1644; J1815; J1885; J2250; J2704; J2720; J3010; J3370; J3475; J3480; J3490; P9045; P9047; C1751; C1760; J2270; J2370; J2930; J7030; J7040; J7050; Q9968